=== PATIENT | female | born 1965 | race African-American/Black ===

== ENCOUNTER 2018-08-20 10:45 | Day surgery (SDC) | payer OTHER ==
[2018-08-17 12:12] VITALS: BMI 27.3
[2018-08-20] MEDS ORDERED: oxyCODONE HCL 5 MG TABLET PO PRN ×2 (13:15)
[2018-08-20] MEDS ORDERED: ONDANSETRON 4 MG/2 ML VIAL IVPUSH PRN (13:15)
[2018-08-20] MEDS ORDERED: LACTATED RINGERS SOLUTION 1,000 ML IV SCH (13:15)
[2018-08-20] MEDS ORDERED: MIDAZOLAM HCL 2 MG/2 ML SINGLE DOSE VIAL ONE (13:23)
[2018-08-20] MEDS ORDERED: DEXAMETHASONE SOD PHOSPHATE 4 MG/1 ML VIAL ONE (13:23)
[2018-08-20] MEDS ORDERED: LIDOCAINE HCL/PF 2% SDV 5ML VIAL ONE (13:23)
[2018-08-20] MEDS ORDERED: PROPOFOL 20 ML ONE (13:23)
[2018-08-20] MEDS ORDERED: SUCCINYLCHOLINE CHLORIDE 200 MG/10 ML VIAL ONE (13:27)
[2018-08-20] MEDS ORDERED: ceFAZolin SODIUM 1 GM VIAL ONE (14:00)
[2018-08-20] MEDS ORDERED: ONDANSETRON 4 MG/2 ML VIAL ONE (15:10)
[2018-08-20] MEDS ORDERED: oxyCODONE HCL 5 MG TABLET ONE (15:48)
[2018-08-20 16:29] VITALS: TEMP 98
[2018-08-20 18:15] VITALS: BP 158/85; PULSE 85
--- NOTE | 2018-08-21 07:12 | OP ---
DATE OF OPERATION: 08/20/2018 PREOPERATIVE DIAGNOSIS: Right carpal tunnel syndrome. POSTOPERATIVE DIAGNOSIS: Right carpal tunnel syndrome. PROCEDURE PERFORMED: Right carpal tunnel release with epineurolysis and release of antebrachial fascia. SURGEON: Namrata Chinchilla MD APPEALS ASSISTANT: Alexandru Chavarria. ANESTHESIA: Dr. Tovar. General anesthesia was performed. DESCRIPTION OF PROCEDURE: The procedure consisted of the patient being brought into the operating room and gently transferred from the stretcher to the OR table with all bony prominences well padded. The right arm was prepared and draped in a sterile fashion. The patient was given intravenous antibiotics with copious irrigation throughout the procedure to minimize the risk of infection. A complete risk, benefit, alternative discussion was conducted with the patient, which was inclusive of, but not limited to, infection, bleeding, , paralysis, increased pain, need for repeat surgery. The patient asked questions, understood the procedure, and decided to proceed with surgical treatment. Following sterile preparation and draping of the right arm, and appropriate time-out was conducted, which was inclusive of, but not limited to, site of surgery, type of surgery, anesthesiologist, and surgeon. Following sterile preparation and draping and having had a time-out, the arm was exsanguinated using Esmarch bandage. Tourniquet was inflated to 250 mmHg. A curvilinear incision in line with the palmar crease to the wrist crease was performed. The dissection was carried through the soft tissues using sharp dissection with great care taken to protect the neurovascular structures. The antebrachial fascia was identified, and gentle dissection allowed penetration deep to the antebrachial fascia and proximal antebrachial fascia, which was also creating constriction, was released. The transverse carpal ligament was identified, and a mosquito hemostat was placed deep to the transverse carpal ligament, and a sharp No. 15 blade scalpel was used to sharply transect the transverse fascial plane and opening up the carpal canal. The transverse carpal ligament was then carefully released freely into palmar fascia with great care taken to protect the median nerve, which was under direct visualization. The median nerve was then visualized. There was noted to be constriction with a waist formation at the level just below the transverse carpal ligament, and epineurolysis was then conducted. Following epineurolysis, the median nerve was evaluated. The recurrent motor branch was visualized and released as well. The wound was then copiously irrigated with sterile saline irrigant, and bipolar cautery was used to perform stoppage of any bleeding. The tourniquet was deflated after 20 minutes tourniquet time. Following this and copious irrigation, the operative incision was closed using interrupted [id number] sutures using 4-0 Prolene. A dressing of Xeroform, 4 x 4's, fluffs, Combine, sterile Webril, and Ryan bandage was then applied. Stocking was provided, and the patient was then gently awoken from anesthesia without incident. Moved from the operating to the recovery room in satisfactory condition. There were no intraoperative complications. NAMRATA CHINCHILLA M.D. [id number]
== END 2018-08-20 18:00 | disposition home or self-care (01) ==
LOC: FASU 10:45
PROVIDERS: ATTEND Orthopaedic Surgery
PROC: 01N50ZZ Release Median Nerve, Open Approach (ICD-10-PCS; principal; 2018-08-20 13:45)
DX: G56.01 Carpal tunnel syndrome, right upper limb (principal)
CPT/HCPCS: 84703; 94760

== ENCOUNTER 2018-11-05 05:52 | Day surgery (SDC) | payer OTHER ==
[2018-11-03 16:32] VITALS: BMI 27.3
[2018-11-05] MEDS ORDERED: methylPREDNISolone ACET (DEPO) 40 MG/1 ML VIAL ONE (09:01)
[2018-11-05] MEDS ORDERED: BUPIVACAINE HCL/PF 0.5% (5MG/ML) 10 ML VIAL ONE (09:01)
[2018-11-05] MEDS ORDERED: MIDAZOLAM HCL 2 MG/2 ML SINGLE DOSE VIAL ONE (09:06)
[2018-11-05] MEDS ORDERED: PROPOFOL 20 ML ONE (09:22)
[2018-11-05] MEDS ORDERED: KETOROLAC TROMETHAMINE 30 MG/1 ML VIAL ONE (09:25)
[2018-11-05] MEDS ORDERED: ONDANSETRON 4 MG/2 ML VIAL IVPUSH PRN (09:37)
[2018-11-05] MEDS ORDERED: oxyCODONE HCL 5 MG TABLET PO PRN (09:37)
[2018-11-05] MEDS ORDERED: PROMETHAZINE HCL 25 MG/1 ML VIAL IVPUSH PRN (09:37)
[2018-11-05 10:07] VITALS: TEMP 98.6
--- NOTE | 2018-11-05 10:56 | OP ---
DATE OF OPERATION: 11/05/2018 PREOPERATIVE DIAGNOSIS: Spinal instability. POSTOPERATIVE DIAGNOSIS: Spinal instability. PROCEDURE PERFORMED: Left and right L3-L4 facet injections under fluoroscopic guidance. SURGEON: Amadou Chinchilla MD NEUROPSYCHOLOGIST: None. ANESTHESIOLOGIST: Hu Moscoso MD ANESTHESIA: Monitored anesthesia care. DESCRIPTION OF PROCEDURE: The procedure consisted of the patient being brought into the operating room and gently transferred from the stretcher to the OR table with all bony prominences well-padded. The lumbar spine was prepared and draped in a sterile fashion. Patient was given intravenous antibiotics and sterile technique throughout the procedure to minimize the risk for infection. After complete risk, benefit and alternative discussion was conducted with the patient, which was inclusive of, but was not limited to, infection, bleeding, , paralysis, increased pain and need for repeat surgery. The patient asked questions, understood the nature of the procedure and desired to proceed with surgical treatment. Following sterile preparation and draping of the lumbar spine, an appropriate time-out was conducted identifying the type of surgery, site of surgery, anesthesiologist, and surgeon. Following this, sterile draping was conducted, and fluoroscopic guidance identified the left and right L3-L4 facets. A 22-gauge spinal needle was introduced into each of these facets under fluoroscopic guidance, and a solution of Depo-Medrol and Marcaine was instilled into each of the facets. The needles were withdrawn. Sterile dressings were applied. The patient was then gently awoken from anesthesia and transferred from the operating room to the recovery room in satisfactory condition. There were no intraoperative complications. Cristobal [id number]
[2018-11-05 11:20] VITALS: BP 130/64; PULSE 58
== END 2018-11-05 11:48 | disposition home or self-care (01) ==
LOC: FASU 05:52
PROVIDERS: ATTEND Orthopaedic Surgery
PROC: 3E0T3BZ Introduction of Anesthetic Agent into Peripheral Nerves and Plexi, Percutaneous Approach (ICD-10-PCS; 2018-11-05)
PROC: BR16YZZ Fluoroscopy of Lumbar Facet Joint(s) using Other Contrast (ICD-10-PCS; 2018-11-05)
PROC: 3E0T33Z Introduction of Anti-inflammatory into Peripheral Nerves and Plexi, Percutaneous Approach (ICD-10-PCS; principal; 2018-11-05 09:26)
DX: M53.2X6 Spinal instabilities, lumbar region (principal)
CPT/HCPCS: 72100-TC-FY; 84703; 94760